=== PATIENT | female | born 1950 | race Caucasian/White ===

== ENCOUNTER 2024-05-19 19:21 | Inpatient (IN) | payer MEDICARE ==
[~2024-05-19] VITALS: Ht 152.4 cm; Wt 74.4 kg
[2024-05-19 20:20] LABS: BASOPHILS % (AUTO) 0.6 % (0.0-2.0); EOSINOPHILS # (AUTO) 0.1 K/uL (0.0-0.7); EOSINOPHILS % (AUTO) 1.8 % (0.0-6.0); HEMATOCRIT 35 % (33-45); HEMOGLOBIN 11.4 g/dL (11.5-14.8); LYMPHOCYTES # (AUTO) 2.3 K/uL (0.8-4.8); LYMPHOCYTES % (AUTO) 30.1 % (20.0-44.0); MEAN CORPUSCULAR HEMOGLOBIN 26 PG (26.0-33.0); MEAN CORPUSCULAR HGB CONC 32 g/dl (31.0-36.0); MEAN CORPUSCULAR VOLUME 81 fL (82-100); MONOCYTES # (AUTO) 0.7 K/uL (0.1-1.30); MONOCYTES % (AUTO) 9.6 % (2.0-12.0); NEUTROPHILS # (AUTO) 4.3 K/uL (1.8-8.9); NEUTROPHILS % (AUTO) 57.9 % (43.0-81.0); PLATELET COUNT (AUTO) 237 K/uL (150-450); RED BLOOD CELL COUNT(AUTO) 4.37 MIL/uL (4.0-5.2); RED CELL DISTRIBUTION WIDTH 14.8 % (11.5-15.0); WHITE BLOOD COUNT (AUTO) 7.5 K/uL (4.3-11.0)
[2024-05-19 20:40] LABS: CALCIUM, SERUM 8.9 mg/dL (8.5-10.1); CARBON DIOXIDE 33 mmol/L (21-32); CHLORIDE 104 mmol/L (98-107); CREATININE 0.5 mg/dL (0.6-1.3); GLUCOSE 104 mg/dL (74-106); POTASSIUM 4.1 mmol/L (3.5-5.1); SODIUM SERUM 141 mmol/L (136-145); UREA NITROGEN, BLOOD 11 mg/dL (7-18)
[2024-05-19 20:53] LABS: ALANINE AMINOTRANSFERASE 24 U/L (12-78); ALBUMIN 3.7 g/dL (3.4-5.0); ALKALINE PHOSPHATASE 95 U/L (46-116); ASPARTATE AMINOTRANSFERASE 18 U/L (15-37); BILIRUBIN,DIRECT 0.1 mg/dL (0.0-0.2); BILIRUBIN,TOTAL 0.4 mg/dL (0.2-1.0); NT-PRO BNP 39 pg/mL (0-125); TOTAL PROTEIN, SERUM 7.2 g/dL (6.4-8.2)
[2024-05-19] MEDS ORDERED: MAGNESIUM HYDROXIDE 30 ML UDC PO PRN (22:00)
[2024-05-19] MEDS ORDERED: Z GUARD REMEDY 4 OZ OINT TP PRN (22:00)
[2024-05-19] MEDS ORDERED: ONDANSETRON HCL/PF 4 MG/2 ML VIAL IVP PRN (22:00)
[2024-05-19] MEDS ORDERED: MAG HYDROX/AL HYDROX/SIMETH 30 ML UDC PO PRN (22:00)
[2024-05-19] MEDS ORDERED: MEMA10TA56 PO (22:13)
[2024-05-19] MEDS ORDERED: CLOP75TA15 PO (22:13)
[2024-05-19] MEDS ORDERED: CITA20TA16 PO (22:13)
[2024-05-19] MEDS ORDERED: DOCU240C26 PO (22:13)
[2024-05-19] MEDS ORDERED: ROSU40TA PO (22:13)
[2024-05-19 22:45] VITALS: BP 130/74; TEMP 97.9; O2SAT 100
[2024-05-19 23:45] VITALS: BP 130/76; TEMP 97.9; O2SAT 100
[2024-05-20] VITALS (8 sets, daily range): BP systolic 107–130; BP diastolic 53–81; TEMP 97.5–98.1; O2SAT 97–99
[2024-05-20 06:52] LABS: BASOPHILS % (AUTO) 0.4 % (0.0-2.0); EOSINOPHILS # (AUTO) 0.1 K/uL (0.0-0.7); EOSINOPHILS % (AUTO) 1.8 % (0.0-6.0); HEMATOCRIT 33 % (33-45); HEMOGLOBIN 10.7 g/dL (11.5-14.8); LYMPHOCYTES # (AUTO) 2.2 K/uL (0.8-4.8); LYMPHOCYTES % (AUTO) 29.6 % (20.0-44.0); MEAN CORPUSCULAR HEMOGLOBIN 26 PG (26.0-33.0); MEAN CORPUSCULAR HGB CONC 33 g/dl (31.0-36.0); MEAN CORPUSCULAR VOLUME 81 fL (82-100); MONOCYTES # (AUTO) 0.7 K/uL (0.1-1.30); NEUTROPHILS # (AUTO) 4.5 K/uL (1.8-8.9); NEUTROPHILS % (AUTO) 59.2 % (43.0-81.0); PLATELET COUNT (AUTO) 236 K/uL (150-450); RED BLOOD CELL COUNT(AUTO) 4.05 MIL/uL (4.0-5.2); RED CELL DISTRIBUTION WIDTH 14.1 % (11.5-15.0); WHITE BLOOD COUNT (AUTO) 7.6 K/uL (4.3-11.0)
[2024-05-20 07:09] LABS: CALCIUM, SERUM 8.7 mg/dL (8.5-10.1); CARBON DIOXIDE 26 mmol/L (21-32); CHLORIDE 107 mmol/L (98-107); CREATININE 0.6 mg/dL (0.6-1.3); GLUCOSE 103 mg/dL (74-106); MAGNESIUM 1.8 mg/dL (1.8-2.4); PHOSPHORUS 3.5 mg/dL (2.5-4.9); POTASSIUM 3.7 mmol/L (3.5-5.1); SODIUM SERUM 144 mmol/L (136-145); UREA NITROGEN, BLOOD 14 mg/dL (7-18)
[2024-05-20] MEDS: ATORVASTATIN 40 MG TABLET PO SCH (08:55)
[2024-05-20] MEDS: CLOPIDOGREL BISULFATE 75 MG TABLET PO SCH (08:55)
[2024-05-20] MEDS: PANTOPRAZOLE 40 MG VIAL IV SCH (08:55)
[2024-05-20] MEDS: MEMANTINE HCL 5 MG TABLET PO SCH (08:56)
[2024-05-20] MEDS: CITALOPRAM HYDROBROMIDE 20 MG TABLET PO SCH (08:56)
[2024-05-20] MEDS: DOCUSATE SODIUM 250 MG CAPSULE PO SCH (08:56)
[2024-05-20] MEDS: NEOMY SULF/BACITRAC ZN/POLY 15 GM TUBE TP SCH (11:11)
[2024-05-20] MEDS ORDERED: IOHEXOL-350 100 ML VIAL IV ONE (11:24)
[2024-05-20] MEDS ORDERED: IV NS 0.9% 250 ML IV ONE (11:24)
[2024-05-20 11:52] LABS: THYROID STIMULATING HORMONE 5.38 uIU/mL (0.358-3.74)
[2024-05-20] MEDS: ACETAMINOPHEN 325 MG TABLET PO PRN (22:00)
[2024-05-21] VITALS: BP 112/62; TEMP 98.4; O2SAT 97
[2024-05-21 04:00] VITALS: BP 145/91; TEMP 97.5; O2SAT 98
[2024-05-21 07:05] LABS: BASOPHILS % (AUTO) 0.5 % (0.0-2.0); EOSINOPHILS # (AUTO) 0.1 K/uL (0.0-0.7); EOSINOPHILS % (AUTO) 2.3 % (0.0-6.0); HEMATOCRIT 37 % (33-45); HEMOGLOBIN 11.9 g/dL (11.5-14.8); LYMPHOCYTES # (AUTO) 1.9 K/uL (0.8-4.8); LYMPHOCYTES % (AUTO) 31.1 % (20.0-44.0); MEAN CORPUSCULAR HEMOGLOBIN 26 PG (26.0-33.0); MEAN CORPUSCULAR HGB CONC 32 g/dl (31.0-36.0); MEAN CORPUSCULAR VOLUME 81 fL (82-100); MONOCYTES # (AUTO) 0.5 K/uL (0.1-1.30); NEUTROPHILS # (AUTO) 3.4 K/uL (1.8-8.9); NEUTROPHILS % (AUTO) 57.1 % (43.0-81.0); PLATELET COUNT (AUTO) 237 K/uL (150-450); RED BLOOD CELL COUNT(AUTO) 4.53 MIL/uL (4.0-5.2); RED CELL DISTRIBUTION WIDTH 14.5 % (11.5-15.0)
[2024-05-21 07:12] LABS: FOLIC ACID 9.1 ng/mL (>3.0)
[2024-05-21 07:28] LABS: CALCIUM, SERUM 9.6 mg/dL (8.5-10.1); CARBON DIOXIDE 35 mmol/L (21-32); CHLORIDE 106 mmol/L (98-107); CREATININE 0.5 mg/dL (0.6-1.3); GLUCOSE 120 mg/dL (74-106); POTASSIUM 3.7 mmol/L (3.5-5.1); SODIUM SERUM 143 mmol/L (136-145); UREA NITROGEN, BLOOD 9 mg/dL (7-18)
[2024-05-21 08:00] VITALS: BP 131/67; TEMP 98.1; O2SAT 98
[2024-05-21] MEDS: PANTOPRAZOLE 40 MG TABLET.DR PO SCH (08:37)
[2024-05-24 17:13] LABS: VITAMIN B1 THIAMINE,WB 109.8 nmol/L (66.5-200.0)
== END 2024-05-21 15:23 | disposition home or self-care (01) | DRG 74 ==
LOC: ER 19:25 → TELE 21:39 → MED 05-21 14:36
PROVIDERS: ATTEND Internal Medicine
DX: G90.8 Other disorders of autonomic nervous system (principal); I50.32 Chronic diastolic (congestive) heart failure; F01.50 Vascular dementia, unspecified severity, without behavioral disturbance, psychotic disturbance, mood disturbance, and anxiety; S01.81XA Laceration without foreign body of other part of head, initial encounter; W18.30XA Fall on same level, unspecified, initial encounter; Y93.K1 Activity, walking an animal; Y92.9 Unspecified place or not applicable; E78.5 Hyperlipidemia, unspecified; I25.10 Atherosclerotic heart disease of native coronary artery without angina pectoris; Z79.02 Long term (current) use of antithrombotics/antiplatelets; Z79.899 Other long term (current) drug therapy; M48.02 Spinal stenosis, cervical region; R51.9 Headache, unspecified
CPT/HCPCS: 36415; 70450-TC; 70496-TC; 70498-TC; 71045-TC; 72125-TC; 80048-TC; 80076-TC; 82607-TC; 82962-TC; 83735-TC; 83880; 83921; 84100-TC; 84425; 84443-TC; 84484-TC; 85025-TC; 93307-TC; 93880-TC; 97112-TC; 97116-TC; 97530-TC; G0378; J2470; J7050; Q9967